=== PATIENT | female | born 1975 | race Caucasian/White ===

== ENCOUNTER → 2016-05-30 | Outpatient (CLI) | payer OTHER ==
[~2016-05-30] VITALS: Ht 177.8 cm; Wt 52.6 kg
[~2016-05-30] MED LIST: CALCIUM MAGNES1 EACH PO; CATAPRES-TTS 10.1 M2 TD; GLUCOTEN CAPLE1 EACH PO; MULTI COMPLETE1 EAC1 PO; VITAMIN D3400 UNIT PO
--- NOTE | ~2016-05-30 | HPC ---
[facility] [address] [address] PAIN MANAGEMENT CONSULTATION Name: HETAL HI Room #: [id number] Admission: 05/30/16 Attend Phys: Lissette Max MD Discharge: Date of : 77 Report #: [id number] THIS REPORT FOR: //name// CC: Bret Carver MD DATE OF SERVICE: 05/30/2016 CHIEF COMPLAINT: Sprain, right ankle and fractured sesamoid bone with pain. HISTORY OF PRESENT ILLNESS: The patient is a 40-year-old female who has been referred to the pain clinic for evaluation. The patient states that she has had some pain in her feet. She sprained her ankle in June 2015. She has undergone physical therapy. She has had undergone treatment. She has developed some pain in her foot, which initially may have had some swelling involved. She and wore orthotics. She did note some increased pain and discomfort at that time. She has experienced some burning, shooting, aching, throbbing, sharp pain with tenderness. Pain is worse sometimes with walking. She notes that the pain is somewhat better when she rubbed it. She rates her pain as a 1/10 at this juncture. Depending on her activity, it can range anywhere from 9-10 or it can range anywhere from 1-10. ALLERGIES: No known drug allergies. HABITS: Denies use of tobacco, denies use of alcoholic beverages. PAST MEDICAL HISTORY: Episodes of low blood pressure, questionable degenerative joint disease/arthritis, history of RSD affecting the right foot. PAST SURGICAL HISTORY: Left knee arthroscopic surgery - 2 surgeries, 1994 and 2007, 1994 lateral release, 2007 "cleaning out." SOCIAL HISTORY: She is a stay at home mother. She is not working at this juncture. REVIEW OF SYSTEMS: A 14-point review of systems indicate generally good health, fatigue and weakness, lightheadedness, numbness and tingling sensation, occasional headaches, nervousness. Negative for inherited diseases. LABORATORY DATA: No laboratory values are available at the time of our interview. PHYSICAL EXAMINATION: Blood pressure 127/75, pulse 84, respiratory rate 16, room air saturation 98%. The patient's height 5 feet 10 inches, the weight is [facility] [address] [address] PAIN MANAGEMENT CONSULTATION Name: HETAL HI [facility] [id number] Admission: 05/30/16 Attend Phys: Lissette Max MD Discharge: Date of : 77 Report #: [id number] 52 kilograms and the BMI is 16.6. The patient has not fallen in the last 3 months. She complains of some pain and discomfort under the sesamoid bone on both the left and the right foot. She noted some redness and "puffy swelling in the foot." States that the foot has gotten better since the injury, but still having some discoloration and occasional swelling. She is not sure, but might note some temperature changes. She had been using a boot in the past. Temperature on the right foot 81.0 Fahrenheit, temperature left foot 78.3. There is no difference in the hair pattern in the left versus right foot. There is no significant swelling in the left or the right foot today. There is no significant color change in the left or right foot, but the left foot might be a little more dusky than the right. The patient is not experiencing much allodynia. She does have some pain and discomfort with pressure right under the sesamoid bone under both of her feet. The patient does not sleep with her feet, hanging out from under the covers. She does not note significant pain and discomfort with cold air or air blowing on her feet. She is not sure that there has been any significant sweating in one side versus the other. Not aware of any significant changes in the nail pattern. I am not sure that noxious stimuli is significantly worse in her left worse the right foot. IMPRESSION: History of chronic regional pain syndrome involving the right foot. Question of chronic regional pain syndrome/reflex sympathetic dystrophy in the left foot. RECOMMENDATIONS: We discussed treatment options with the patient. We discussed the pathophysiology of reflex sympathetic dystrophy. The patient appears to understand the concepts. At this juncture, she would like to continue with a conservative approach. We will place a Catapres patch on the left foot. This could help improve blood flow to the affected area. She would prefer not to take any other medications and will call us in about a week or two. If she shows signs of reflex sympathetic dystrophy, we explained the use of a lumbar sympathetic block which can be helpful. Again, she would prefer to do this only as a last resort. If she were to have surgery given that she had reflex sympathetic dystrophy/complex regional pain syndrome in the past, a regional block with an epidural or spinal would be encouraged. She will call us back in the near future. We will go from there. We will decide which direction to go after that. We would like to thank you for letting us participate in her care. We hope she continues to improve. <ELECTRONICALLY SIGNED> By: Lissette Max MD 06/17/16 [id number] Lissette Max MD /brian
[2016-05-30 15:00] VITALS: BP 127/75
[2016-05-30 15:15] VITALS: BP 127/75
== END | disposition home or self-care (01) ==
LOC: PAIN 07:45
DX: M54.16 Radiculopathy, lumbar region (principal); G89.29 Other chronic pain; Z87.891 Personal history of nicotine dependence